=== PATIENT | female | born 1960 | race Caucasian/White ===

== ENCOUNTER → 2020-08-31 11:57 | Outpatient (CLI) | payer BC, SELFPAY ==
--- NOTE | ~2020-08-31 | XR_ITS ---
XR lumbar spine 2-3V 08/31/2020 12:45 Indication: Low back pain Procedure: 3 views lumbar spine Comparison: No prior studies for comparison. Findings: There is disc narrowing at all lumbar levels except L1-2. There is moderate facet degenerat bren changes of the lower lumbar spine with grade 1 degenerative spondylolisthesis at L4-5. There is l evoscoliosis. Mild wedge-shaped appearance to T12, likely chronic or developmental. Impression: 1: Moderate-severe lumbar spondylosis with levoscoliosis. Reviewed, dictated and finalized at location B. ON SEWING MACHINE OPERATOR Impression: 1: Moderate-severe lumbar spondylosis with levoscoliosis.
--- NOTE | ~2020-08-31 | XR_ITS ---
EXAMINATION: XR hip RT min 2V DATE: 08/31/2020 12:45 INDICATION: Right hip pain. Injury. TECHNIQUE: 2 views of right hip were obtained. COMPARISON: None. FINDINGS: Bone alignment is normal. No fracture. Right hip joint space is normal. IMPRESSION: 1. Normal right hip. Reviewed, dictated and finalized at location A. NG FISHER IMPRESSION: 1. Normal right hip.
== END ==
PROVIDERS: Visit Provider Chiropractor
DX: M99.03 Segmental and somatic dysfunction of lumbar region (principal); M99.05 Segmental and somatic dysfunction of pelvic region; M53.3 Sacrococcygeal disorders, not elsewhere classified; M47.896 Other spondylosis, lumbar region; M25.551 Pain in right hip
CPT/HCPCS: 72100; 73502